=== PATIENT | female | born 1960 | race African-American/Black ===

== ENCOUNTER 2020-12-23 13:25 | Emergency (ER) | payer MEDICAID, SELFPAY ==
[~2020-12-23] VITALS: Ht 162.6 cm; Wt 181.4 kg
[2020-12-23 13:34] VITALS: BP_SYST 115; BP_SYST 93
[2020-12-23] MEDS ORDERED: AZITHROMYCIN 500 MG in NS 250 ML IV ONE (14:15)
[2020-12-23] MEDS ORDERED: DEXAMETHASONE SOD PHOSPHATE 4 MG/ML VIAL IVP ONE (14:15)
[2020-12-23] MEDS ORDERED: AZITHROMYCIN 500 MG/VIAL (ZITHROMAX) IV ONE (14:33)
[2020-12-23] MEDS ORDERED: ZINC50TA69 PO (14:44)
[2020-12-23] MEDS ORDERED: HYDR200T80 PO (14:44)
[2020-12-23] MEDS ORDERED: DEC4 PO (14:44)
[2020-12-23 14:52] LABS: BASOPHILS % (AUTO) 0.8 % (0.0-2.0); EOSINOPHILS % (AUTO) 0.2 % (0.0-4.0); HEMATOCRIT 36.3 % (36-48); HEMOGLOBIN 11.7 g/dL (12.0-16.0); LYMPHOCYTES # (AUTO) 0.8 K/uL (1.0-5.5); LYMPHOCYTES % (AUTO) 28.9 % (20.5-51.5); MEAN CORPUSCULAR HEMOGLOBIN 23 pg (27-31); MEAN CORPUSCULAR HGB CONC 32 % (32-36); MEAN CORPUSCULAR VOLUME 72 fL (79.0-98.0); MONOCYTES # (AUTO) 0.4 K/uL (0.0-1.0); MONOCYTES % (AUTO) 15.6 % (1.7-9.3); NEUTROPHILS # (AUTO) 1.5 K/uL (1.8-7.7); NEUTROPHILS % (AUTO) 54.5 % (40.0-70.0); PLATELET COUNT (AUTO) 144 K/uL (130-430); RED BLOOD CELL COUNT(AUTO) 5.04 MIL/uL (4.2-6.2); RED CELL DISTRIBUTION WIDTH 14.6 % (9.0-15.0); WHITE BLOOD COUNT (AUTO) 2.7 K/uL (4.8-10.8)
[2020-12-23 15:12] LABS: CALCIUM 8.4 mg/dL (8.4-11.0); CREATININE 1.33 mg/dL (0.55-1.30); POTASSIUM 3.5 mmol/L (3.5-5.1)
[2020-12-23 15:17] LABS: ALBUMIN 3.3 g/dL (3.4-4.8); TOTAL BILIRUBIN 0.8 mg/dL (0.0-1.0)
[2020-12-23 17:43] VITALS: BP_SYST 136
[2020-12-23 17:46] LABS: BILIRUBIN,URINE NEGATIVE (NEGATIVE); BLOOD, URINE NEGATIVE (NEGATIVE); CLARITY/URINE CLEAR (CLEAR); GLUCOSE,URINE NEGATIVE (NEGATIVE); KETONES,URINE NEGATIVE (NEGATIVE); LEUKOCYTE ESTERASE ,URINE NEGATIVE (NEGATIVE); NITRITE, URINE NEGATIVE (NEGATIVE); PROTEIN URINE NEGATIVE (NEGATIVE); UROBILINOGEN,URINE 0.2 (0.2-1.0)
[2020-12-23 17:47] LABS: COLOR,URINE STRAW (YELLOW)
== END 2020-12-23 17:43 | disposition home or self-care (01) ==
LOC: SED 13:25
DX: U07.1 COVID-19 (principal); I10 Essential (primary) hypertension; E11.9 Type 2 diabetes mellitus without complications; E78.00 Pure hypercholesterolemia, unspecified
CPT/HCPCS: 36415; 71045; 80053; 81003; 85025; 86886; 86900; 86901; 87040; 96374; 99291; J0456; J1100; J7050; M0239; 99284; 99285

== ENCOUNTER 2020-12-25 14:32 | Emergency (ER) | payer MEDICAID, SELFPAY ==
[~2020-12-25] VITALS: Ht 162.6 cm; Wt 148.8 kg
[~2020-12-25 14:32] MED LIST: DEC4 PO; HYDR200T80 PO; ZINC50TA69 PO
[2020-12-25 14:39] VITALS: BP_SYST 117
[2020-12-25 15:52] LABS: BASOPHILS % (AUTO) 0.4 % (0.0-2.0); EOSINOPHILS % (AUTO) 0.1 % (0.0-4.0); HEMATOCRIT 38.2 % (36-48); HEMOGLOBIN 12.2 g/dL (12.0-16.0); LYMPHOCYTES # (AUTO) 0.9 K/uL (1.0-5.5); LYMPHOCYTES % (AUTO) 12.7 % (20.5-51.5); MEAN CORPUSCULAR HEMOGLOBIN 23 pg (27-31); MEAN CORPUSCULAR HGB CONC 32 % (32-36); MEAN CORPUSCULAR VOLUME 72 fL (79.0-98.0); MONOCYTES # (AUTO) 0.8 K/uL (0.0-1.0); MONOCYTES % (AUTO) 11.8 % (1.7-9.3); NEUTROPHILS # (AUTO) 5.3 K/uL (1.8-7.7); PLATELET COUNT (AUTO) 238 K/uL (130-430); RED BLOOD CELL COUNT(AUTO) 5.32 MIL/uL (4.2-6.2); RED CELL DISTRIBUTION WIDTH 14.8 % (9.0-15.0); WHITE BLOOD COUNT (AUTO) 7.1 K/uL (4.8-10.8)
[2020-12-25 16:06] LABS: ANION GAP 6 (5-15); CHLORIDE 97 mmol/L (98-107); CREATININE 1.23 mg/dL (0.55-1.30); GLUCOSE 99 mg/dL (70-99); POTASSIUM 3.2 mmol/L (3.5-5.1); SODIUM SERUM 136 mmol/L (136-145); UREA NITROGEN, BLOOD 28 mg/dL (8-21)
[2020-12-25 16:08] LABS: GFR AFRICAN AMERICAN 57 mL/min (>90)
[2020-12-25 16:21] LABS: THYROID STIMULATING HORMONE 0.87 uIu/mL (0.36-3.74)
[2020-12-25 17:58] LABS: PROTHROMBIN TIME 10.1 SECS (9.5-12.5)
[2020-12-25 18:10] LABS: ALANINE AMINOTRANSFERASE 23 U/L (12-78); ALBUMIN 3.4 g/dL (3.4-4.8); ASPARTATE AMINOTRANSFERASE 35 U/L (10-37); BILIRUBIN,DIRECT 0.1 mg/dL (0.0-0.3); TOTAL BILIRUBIN 0.4 mg/dL (0.0-1.0)
[2020-12-25 18:28] LABS: ACETONE, SERUM NEGATIVE (NEGATIVE)
[2020-12-25 18:49] LABS: BILIRUBIN,URINE NEGATIVE (NEGATIVE); BLOOD, URINE NEGATIVE (NEGATIVE); CLARITY/URINE CLEAR (CLEAR); COLOR,URINE YELLOW (YELLOW); GLUCOSE,URINE NEGATIVE (NEGATIVE); KETONES,URINE NEGATIVE (NEGATIVE); LEUKOCYTE ESTERASE ,URINE NEGATIVE (NEGATIVE); NITRITE, URINE NEGATIVE (NEGATIVE); PROTEIN URINE NEGATIVE (NEGATIVE); UROBILINOGEN,URINE 0.2 (0.2-1.0)
[2020-12-25 19:22] VITALS: BP_SYST 131
== END 2020-12-25 19:22 | disposition home or self-care (01) ==
LOC: SED 14:32
DX: U07.1 COVID-19 (principal); R53.83 Other fatigue; R53.1 Weakness; I10 Essential (primary) hypertension; E11.9 Type 2 diabetes mellitus without complications; E78.00 Pure hypercholesterolemia, unspecified; E66.01 Morbid (severe) obesity due to excess calories; Z90.710 Acquired absence of both cervix and uterus; Z79.899 Other long term (current) drug therapy
CPT/HCPCS: 36415; 70450-TC; 71045; 76376; 80048; 80076; 81003; 82009-TC; 82550-TC; 83605; 84443-TC; 84484; 85025; 85610-TC; 85730-TC; 93005; 99285